=== PATIENT | male | born 1955 | race African-American/Black ===

== ENCOUNTER 2016-06-17 16:29 | Emergency (ER) | payer MEDICARE ==
[~2016-06-17] VITALS: Ht 177.8 cm; Wt 95.5 kg
[~2016-06-17 16:29] MED LIST: 1-ME1LIQ PO; ASPI1TAB7 PO
[2016-06-17 16:32] VITALS: BP 169/95; PULSE 96; RESP 18; TEMP 98.2; O2SAT 97
--- NOTE | 2016-06-17 17:00 | PD ---
Physical Exam Date Seen by Provider: Jun 17, 2016 Time Seen by Provider: 16:59 Narrative 60 year old male presents to the emergency department for evaluation of dizziness, palpitations for 30 minutes. He reports these symptoms are similar to his previous CVA. Patient awaiting bed placement. Data Data Last Documented VS Vital Signs Date Time Temp Pulse Resp B/P Pulse Ox O2 Delivery O2 Flow Rate FiO2 06/17/16 16:32 98.2 96 18 169/95 97 MDM Supervised Visit with YOSEF: Dayana Montgomery Jun 17, 2016 17:00
[2016-06-17] MEDS ORDERED: ASPI1TAB69 PO (17:06)
[2016-06-17] MEDS ORDERED: AMLO10 PO (17:06)
[2016-06-17] MEDS ORDERED: SODIUM CHLOR 0.9% 1000 ML INJ 1,000 ML IV ONE (17:14)
[2016-06-17] MEDS ORDERED: ONDANSETRON HCL 4 MG/2 ML VIAL IVP ONE (17:15)
[2016-06-17] MEDS ORDERED: SODIUM CHLORIDE 0.9% FLUSH 10 ML FLUSH IVF PRN (17:15)
[2016-06-17] MEDS ORDERED: MECLIZINE HCL 25 MG TAB PO ONE (17:15)
[2016-06-17 17:16] VITALS: RESP 17; O2SAT 99
[2016-06-17 17:35] VITALS: BP 136/76; PULSE 89; RESP 17; O2SAT 99
[2016-06-17 17:43] LABS: AUTOMATED NEUTROPHIL # 8.1 TH/MM3 (1.8-7.7); BASOPHIL # 0.1 TH/MM3 (0-0.2); BASOPHIL % 0.5 % (0.0-2.0); EOSINOPHIL % 0.4 % (0.0-4.0); HEMATOCRIT 44.4 % (39.0-51.0); HEMO FLAGS DIFF FINAL; LYMPH % 17.8 % (9.0-44.0); LYMPHOCYTE # 1.9 TH/MM3 (1.0-4.8); MEAN CORPUSCULAR HEMOGLOBIN 29.9 PG (27.0-34.0); MEAN CORPUSCULAR HGB CONC 33.9 % (32.0-36.0); MONO % 6.9 % (0.0-8.0); NEUT % 74.4 % (16.0-70.0); PLATELET COUNT 239 TH/MM3 (150-450); RED BLOOD COUNT 5.05 MIL/MM3 (4.50-5.90); RED CELL DISTRIBUTION WIDTH 14.6 % (11.6-17.2)
[2016-06-17 18:11] LABS: BICARBONATE 26.4 MEQ/L (21.0-32.0); POTASSIUM 3.7 MEQ/L (3.5-5.1)
--- NOTE | 2016-06-17 18:28 | RADRPT ---
EXAM DATE/TIME: 06/17/2016 18:04 [facility] COMPARISON: MRI BRAIN W/O CONTRAST, May 29, 2015, 10:31. INDICATIONS : Dizziness and headache. RADIATION DOSE: 56.35 CTDIvol (mGy) MEDICAL HISTORY : Cerebrovascular disease. Stroke SURGICAL HISTORY : None. ENCOUNTER: Initial ACUITY: 1 day PAIN SCALE: 3/10 LOCATION: cranial TECHNIQUE: Multiple contiguous axial images were obtained of the head. Using automated exposure control and adj ustment of the mA and/or kV according to patient size, radiation dose was kept as low as reasonably a chievable to obtain optimal diagnostic quality images. FINDINGS: Small old lacunar infarcts present in the right basal ganglia and right amparo. There is no evidence of intracranial hemorrhage or mass. There is nothing to suggest acute infarction. Ventricles are symmet joe and normal. The extracranial structures are benign and intact. CONCLUSION: No acute intracranial findings Marcus Evans MD on June 17, 2016 at 18:24 Board Certified Radiologist. This report was verified electronically.
[2016-06-17 18:29] VITALS: BP 137/77; PULSE 77; RESP 16; O2SAT 99
--- NOTE | 2016-06-17 18:51 | PD ---
HPI Chief Complaint: Dizziness Time Seen by Provider: 17:14 Travel History International Travel<30 days: No Contact w/Intl Traveler<30days: No Traveled to known affect area: No History of Present Illness HPI 60-year-old male has dizziness vertiginous in nature. Duration has been about 45 minutes. He reports multiple similar prior episodes. He notes he has a history of stroke with residual left-sided weakness however there has been no worsening. He has maintained his normal routine of work and routine activities without a significant change. No recent illness or medicine changed to report. Compliance with medications reported. He follows with Dr. Paul. [facility] Past Medical History Arthritis: No Asthma: No Autoimmune Disease: No Anxiety: No Depression: No Heart Rhythm Problems: No Cancer: No Cardiac Catheterization: No Cardiovascular Problems: Yes High Cholesterol: Yes Chemotherapy: No Chest Pain: No Congestive Heart Failure: No COPD: No Cerebrovascular Accident: Yes Diabetes: No Diminished Hearing: No Endocrine: No Gastrointestinal Disorders: No GERD: No Genitourinary: Yes (goes alot-"too much") Headaches: No Hiatal Hernia: No Hypertension: Yes Immune Disorder: No Kidney Stones: No Musculoskeletal: No Neurologic: Yes (stroke 2013) Psychiatric: No Reproductive: No Respiratory: No Immunizations Current: Yes Migraines: No Radiation Therapy: No Renal Failure: No Seizures: No Sickle Cell Disease: No Sleep Apnea: No Thyroid Disease: No Ulcer: No Tetanus Vaccination: > 5 Years Influenza Vaccination: No Past Surgical History Surgical History: No Previous Surgery Abdominal Surgery: No AICD: No Arteriovenous Shunt: No Cardiac Surgery: No Coronary Artery Bypass Graft: No Ear Surgery: No Endocrine Surgery: No Genitourinary Surgery: No Gynecologic Surgery: No Insulin Pump: No Joint Replacement: No Oral Surgery: No Pacemaker: No Thoracic Surgery: No Other Surgery: No Social History Alcohol Use: Yes (ocassionally) Tobacco Use: No Substance Use: Yes (marihuanna) Allergies-Medications (Allergen,Severity, Reaction): Coded Allergies: No Known Allergies (Verified , 06/17/16) Reported Meds & Prescriptions Reported Meds & Active Scripts Active Reported Aspirin 81 Mg Tabdr 81 Mg PO DAILY Norvasc (Amlodipine Besylate) 10 Mg Tab 10 Mg PO DAILY Review of Systems Except as stated in HPI: all other systems reviewed are Neg Physical Exam Narrative GENERAL: 60-year-old male pleasant no acute distress SKIN: Focused skin assessment warm/dry. HEAD: Atraumatic. Normocephalic. EYES: Pupils equal and round. No scleral icterus. No injection or drainage. ENT: No nasal bleeding or discharge. Mucous membranes pink and moist. NECK: Trachea midline. No JVD. CARDIOVASCULAR: Regular rate and rhythm. No murmur appreciated. RESPIRATORY: No accessory muscle use. Clear to auscultation. Breath sounds equal bilaterally. GASTROINTESTINAL: Abdomen soft, non-tender, nondistended. Hepatic and splenic margins not palpable. MUSCULOSKELETAL: No obvious deformities. No clubbing. No cyanosis. No edema. NEUROLOGICAL: Awake and alert. There is minimal weakness of the left hand and left leg which she states is stable for him. Cranial nerves appear symmetric. PSYCHIATRIC: Appropriate mood and affect; insight and judgment normal. Data Data Last Documented VS Vital Signs Date Time Temp Pulse Resp B/P Pulse Ox O2 Delivery O2 Flow Rate FiO2 06/17/16 18:29 77 16 137/77 99 Room Air 06/17/16 16:32 98.2 Vital signs reviewed Orders Electrocardiogram (06/17/16 ) Electrocardiogram (06/17/16 17:14) Basic Metabolic Panel (Bmp) (06/17/16 17:14) Complete Blood Count With Diff (06/17/16 17:14) Ct Brain W/O Iv Contrast(Rout) (06/17/16 17:14) Ecg Monitoring (06/17/16 17:14) Iv Access Insert/Monitor (06/17/16 17:14) Oximetry (06/17/16 17:14) Meclizine (Antivert) (06/17/16 17:15) Ondansetron Inj (Zofran Inj) (06/17/16 17:15) Sodium Chloride 0.9% Flush (Ns Flush) (06/17/16 17:15) Sodium Chlor 0.9% 1000 Ml Inj (Ns 1000 M (06/17/16 17:14) Labs Laboratory Tests Test 06/17/16 17:10 White Blood Count 11.0 TH/MM3 Red Blood Count 5.05 MIL/MM3 Hemoglobin 15.1 GM/DL Hematocrit 44.4 % Mean Corpuscular Volume 88.0 FL Mean Corpuscular Hemoglobin 29.9 PG Mean Corpuscular Hemoglobin 33.9 % Concent Red Cell Distribution Width 14.6 % Platelet Count 239 TH/MM3 Mean Platelet Volume 9.3 FL Neutrophils (%) (Auto) 74.4 % Lymphocytes (%) (Auto) 17.8 % Monocytes (%) (Auto) 6.9 % Eosinophils (%) (Auto) 0.4 % Basophils (%) (Auto) 0.5 % Neutrophils # (Auto) 8.1 TH/MM3 Lymphocytes # (Auto) 1.9 TH/MM3 Monocytes # (Auto) 0.8 TH/MM3 Eosinophils # (Auto) 0.0 TH/MM3 Basophils # (Auto) 0.1 TH/MM3 CBC Comment DIFF FINAL Differential Comment Sodium Level 141 MEQ/L Potassium Level 3.7 MEQ/L Chloride Level 106 MEQ/L Carbon Dioxide Level 26.4 MEQ/L Anion Gap 9 MEQ/L Blood Urea Nitrogen 12 MG/DL Creatinine 1.21 MG/DL Estimat Glomerular Filtration 74 ML/MIN Rate Random Glucose 135 MG/DL Calcium Level 8.7 MG/DL MDM Medical Decision Making Medical Screen Exam Complete: Yes Emergency Medical Condition: Yes Medical Record Reviewed: Yes Differential Diagnosis Vertigo of peripheral etiology, electrolyte imbalance, arrhythmia, anemia, polypharmacy Narrative Course CBC & BMP Diagram 06/17/16 17:10 Last [address] 06/17/16 1844 Signed Impressions: Service Date/Time: Friday, June 17, 2016 18:04 - CONCLUSION: No acute intracranial findings Marcus Evans MD The patient is resting comfortably and feels better, is alert and in no distress. The patients results and examination findings were discussed. The repeat examination is unremarkable and benign. The history, exam, diagnostic testing, and current condition do not suggest any significant pathology to warrant further testing, continued ED treatment, admission, or surgical evaluation at this point. The vital signs have been stable. The patient does not have uncontrollable pain, intractable vomiting, or other significant symptoms. The patient's condition is stable and appropriate for discharge. The patient will pursue further outpatient evaluation with a primary care physician or other designated or consulting physician as indicated in the discharge instructions. The patient expressed understanding and was agreeable with this plan. Diagnosis Primary Impression: Dizziness Referrals: Marcus Paul MD 2 days Additional Instructions: You have a choice when it comes to health care, and we are glad that you chose [facility]. Hopefully, we have met your expectations on today's visit. You are welcome to return to [facility] at any time, as we are committed to meeting the health care needs of our community. Med/Other Pt SpecificInfo: No Change to Meds Disposition: 01 DISCHARGE HOME Condition: Farhat Gagnon MD Jun 17, 2016 18:51
--- NOTE | 2016-06-18 14:46 | EKG ---
Date Performed: 06/17/2016 Time Performed: 17:10:14 PTAGE: 60 years EKG: Sinus rhythm Compared to prior tracing no significant change NORMAL ECG PREVIOUS TRACING : 12/26/2015 09.52 DOCTOR: Fanny Owusu Interpretating Date/Time 06/18/2016 14:42:26
== END 2016-06-17 20:01 | disposition home or self-care (01) ==
LOC: NEPC 16:29
DX: R42 Dizziness and giddiness (principal); I10 Essential (primary) hypertension; E78.00 Pure hypercholesterolemia, unspecified; Z86.79 Personal history of other diseases of the circulatory system; Z87.448 Personal history of other diseases of urinary system
CPT/HCPCS: 70450; 80048; 85025; 93005; 96361; 96374; 99284; J2405; J7030